=== PATIENT | female | born 1995 | race Caucasian/White ===

== ENCOUNTER 2016-06-23 02:06 | Emergency (ER) | payer SELFPAY ==
--- NOTE | ~2016-06-23 | ER ---
PATIENT'S NAME: ANETA [facility] AGE: 20 Y [address] ROOM: [place] [address] LOCATION: [facility] ADMIT DATE: 06/23/2016 ER/Outpatient Report DISCHARGE DATE: 06/23/2016 FAMILY PHYSICIAN: PHYSICIAN, NO ATTENDING PHYSICIAN: Vera Jensen Admission date and time are documented on the medical record. I saw the patient at 0215 hours. CHIEF COMPLAINT: Headache. HISTORY OF PRESENT ILLNESS: This patient is a 20-year-old female who was at work tonight accidentally hit a metal wire shelf midfacial forehead. She was dazed, but did not lose consciousness. Did not fall. Incident happened at 1930 hours this evening at work. She did get nausea, but no vomiting. No incontinence of stool or urine. No lightheadedness or dizziness. No other trauma. No eyes, ears, nose, throat, neck, or spine pain. No chest pain or shortness of breath. No abdominal pain. No history of neuro changes or endocrine problems. Does have a history of depression. She now has a global headache, unable to sleep, and presented to the emergency room for evaluation. HOME MEDICATIONS: See attached medication list. ALLERGIES: PENICILLIN. SOCIAL HISTORY: The patient smokes a pack of cigarettes per day. Does drink alcohol. Does use marijuana. SIGNIFICANT PAST MEDICAL HISTORY: Tobacco, alcohol, marijuana use, asthma, fibromyalgia, and ovarian cyst. OPERATIONS: None. REVIEW OF SYSTEMS: All systems reviewed by me are negative with the exception of those discussed in the history of present illness. PHYSICAL EXAMINATION: VITAL SIGNS: Temperature 98.4, tympanic, pulse 105, respirations 16, blood PATIENT'S NAME: ANETA [facility] AGE: 20 Y [address] ROOM: [place] [address] LOCATION: [facility] ADMIT DATE: 06/23/2016 ER/Outpatient Report DISCHARGE DATE: 06/23/2016 FAMILY PHYSICIAN: PHYSICIAN, NO ATTENDING PHYSICIAN: Vera Jensen pressure 135/73, and O2 sat on room air is 93%. HEAD: Normocephalic. I did not see any abrasion, contusions, laceration, or swellings of the scalp or face. She has a tender spot in midfacial forehead. EYES: Extraocular muscles intact. PERRL. Sclerae and conjunctivae clear, nonicteric. EARS: Clear TMs bilaterally. NOSE: Clear. THROAT: Clear. Mucous membranes moist. Teeth, jaw intact. NECK: No nuchal rigidity. No thyromegaly or cervical adenopathy. No tenderness. Range of motion full. SPINE: Nontender. No deformity. LUNGS: Clear. Good air flow. No rales, rhonchi, or wheezes. HEART: Regular. Pulses are palpable. ABDOMEN: Soft, nondistended, nontender. Good bowel tones. No organomegaly or abnormal masses palpable. PELVIS: Stable. EXTREMITIES: Moves all 4 extremities. No peripheral edema, cyanosis, or deformity. NEURO: Cranial nerves intact. No lateralizing sign. The patient is awake, oriented, and cooperative. Motor and sensory intact. NIH stroke scale was 0. SKIN: Clear. No skin eruptions or rash. IMPRESSION: Midfacial forehead contusion with a generalized headache following an accident at work, where she hit her forehead on a wire metal shelf. No loss of consciousness. The patient has a sore midfacial forehead with generalized headache. Probably has a grade 1 concussion along with contusion of the facial forehead. PLAN: The patient dismissed home. Observation. Activity as tolerated. Ice to facial forehead sore area intermittently as needed for 72 hours. Rest. Tylenol or ibuprofen 2 every 4 to 6 hours as needed for pain. Follow up with personal physician as needed. I did discuss my findings with the patient. She has no neurological changes. I did not feel that she needed a CT scan of her head at this time. VERA JENSEN MD SDS/modl PATIENT'S NAME: PUSHPA CORNELL [facility] AGE: 20 Y [address] ROOM: [place], [place] [address] LOCATION: [facility] ADMIT DATE: 06/23/2016 ER/Outpatient Report DISCHARGE DATE: 06/23/2016 FAMILY PHYSICIAN: PHYSICIAN, NO ATTENDING PHYSICIAN: Vera Jensen /[id number] d: 06/23/16 0456 t: 06/23/16 1836, OUTPATIENT REPORT
== END 2016-06-23 02:46 | disposition disaster alternative care site (69) ==
LOC: GACC 02:06
DX: S00.83XA Contusion of other part of head, initial encounter (principal); R51 Headache; F17.210 Nicotine dependence, cigarettes, uncomplicated; Z88.0 Allergy status to penicillin; W22.8XXA Striking against or struck by other objects, initial encounter; Y92.69 Other specified industrial and construction area as the place of occurrence of the external cause; Y99.0 Civilian activity done for income or pay

== ENCOUNTER 2016-07-13 10:05 | Emergency (ER) | payer SELFPAY ==
--- NOTE | ~2016-07-13 | ER ---
PATIENT'S NAME: ANETA [facility] AGE: 20 Y [address] ROOM: [place] [address] LOCATION: [facility] ADMIT DATE: 07/13/2016 ER/Outpatient Report DISCHARGE DATE: 07/13/2016 FAMILY PHYSICIAN: PHYSICIAN, NO ATTENDING PHYSICIAN: Remy Hodgson Admission date and time documented on the medical record. I saw the patient at 1015 hours. CHIEF COMPLAINT: Sore throat. HISTORY OF PRESENT ILLNESS: This patient is a 20-year-old female, who has had one to two-day history of sore throat. Problems with sleeping and breathing because of the swelling. She also has had a fever. Some chills. No headache, eyes, ears, nose, neck, or spine pain. No fall or trauma. No lightheadedness, dizziness, syncope, or near syncope. No chest pain, shortness of breath, abdominal pain, nausea, vomiting, diarrhea, or urinary complaints. No joint or muscle swelling, redness, or pain. No skin eruptions or rash. No endocrine problems, neuro changes, or psych issues. HOME MEDICATIONS: See attached medication list. ALLERGIES: PENICILLIN. SOCIAL HISTORY: The patient smokes a pack of cigarettes per day. Occasional use of alcohol and marijuana. SIGNIFICANT PAST MEDICAL HISTORY: Alcohol and marijuana use, tobacco abuse, asthma, fibromyalgia, and chronic ovarian pain secondary to cysts. OPERATIONS: None. REVIEW OF SYSTEMS: All systems reviewed by me are negative with the exception of those discussed in the history of present illness. PHYSICAL EXAMINATION: VITAL SIGNS: Temperature 99.2 tympanic, pulse 116, respirations 18, blood PATIENT'S NAME: AMHERST [facility] AGE: 20 Y [address] ROOM: [place], [place] [address] LOCATION: [facility] ADMIT DATE: 07/13/2016 ER/Outpatient Report DISCHARGE DATE: 07/13/2016 FAMILY PHYSICIAN: PHYSICIAN, NO ATTENDING PHYSICIAN: Remy Hodgson pressure 147/68, and O2 saturation on room air is 96%. HEAD: Normocephalic. EYES: Clear. EARS: Clear TMs bilaterally. NOSE: Clear. THROAT: Inflamed. Tonsils inflamed with exudate. NECK: With anterior tender adenopathy. No posterior adenopathy. LUNGS: Clear. HEART: Regular. ABDOMEN: Soft. Nontender. Good bowel tones. No CVA tenderness. EXTREMITIES: Intact. NEUROVASCULAR: Intact. SKIN: Clear. No skin eruptions or rash. LABORATORY DATA AND X-RAYS: Rapid strep screen was positive. Monospot was negative. IMPRESSION: Streptococcal tonsillitis and pharyngitis. PLAN: The patient was given Decadron 10 mg IM in the emergency room. Discharged home. Fluids and diet as tolerated. Z-Mil take as directed. Tylenol or ibuprofen as needed for fever. Follow up with personal physician in 10 days for reculture of throat. Discussion ensued with the patient concerning my findings and recommendations, she understands. MD SIMRAN KELLEY/modl /[id number] P d: 07/13/16 1905 t: 07/14/16 0608, OUTPATIENT REPORT
[2016-07-13 11:34] LABS: BASOPHIL % 0.2 %; HEMATOCRIT 36.7 % (33.0-46.0); HEMOGLOBIN 12.4 g/dL (11.0-15.0); IMMATURE GRANULOCYTE # 0.1 K/uL (0.0-0.3); IMMATURE GRANULOCYTE % 0.6 %; LYMPHOCYTE # 1.2 K/uL (0.8-4.0); LYMPHOCYTE % 7.4 %; MCH 27.6 pg (27.0-34.0); MCHC 33.8 gm/dL (32.0-36.5); MCV 81.7 fl (83.0-98.0); MONOCYTE # 1.2 K/uL (0.0-1.0); MONOCYTE % 7.4 %; MPV 10.3 fl (9.4-12.4); NEUTROPHIL # (ANC) 13.5 K/uL (1.8-7.8); NEUTROPHIL % 84.4 %; NRBC % 0 /100WBC (0-0.00); PLATELET COUNT 190 K/uL (150-450); RBC 4.49 M/uL (3.50-5.00); RDW-CV 13.2 % (11.9-14.6)
== END 2016-07-13 11:40 | disposition disaster alternative care site (69) ==
LOC: GMED 10:05
PROVIDERS: Emergency Medicine
DX: J03.00 Acute streptococcal tonsillitis, unspecified (principal); J02.0 Streptococcal pharyngitis; F17.210 Nicotine dependence, cigarettes, uncomplicated; Z88.0 Allergy status to penicillin; J45.909 Unspecified asthma, uncomplicated
CPT/HCPCS: J1100

== ENCOUNTER 2016-10-28 01:31 | Emergency (ER) | payer SELFPAY ==
--- NOTE | ~2016-10-28 | ER ---
PATIENT'S NAME: ANETA [facility] AGE: 20 Y [address] ROOM: [place] [address] LOCATION: ED ADMIT DATE: 10/28/2016 ER/Outpatient Report DISCHARGE DATE: 10/28/2016 FAMILY PHYSICIAN: PHYSICIAN, NO ATTENDING PHYSICIAN: Bernardo David Time of Admit: 0131 hours. Time Seen: 0140 hours. HISTORY OF PRESENT ILLNESS: This is a 20-year-old female. She is previously healthy. She is in with complaint of headache; nasal congestion; sinus pain for the past week; cough for the past 2 days, it has gotten steadily worse. PAST MEDICAL HISTORY: Significant for bipolar disorder. CURRENT MEDICATIONS: See list. REVIEW OF SYSTEMS: Otherwise negative. SOCIAL HISTORY: She is a 6-hevl-akv-day smoker. PHYSICAL EXAMINATION: GENERAL: Alert, obese female, in no acute distress. VITAL SIGNS: Stable. SKIN: Warm and dry. Color is normal. She had frequent fits of cough. HEAD, EARS, EYES, NOSE, AND THROAT: Revealed moderate maxillary sinus tenderness. Tympanic membranes are normal. Throat is clear. NECK: Supple. HEART: Regular rate and rhythm without murmur. LUNGS: Had coarse rhonchi audible bilaterally. ABDOMEN: Soft and nontender. EXTREMITIES: Normal. NEUROLOGIC: Normal. ASSESSMENT: Sinusitis/bronchitis. PLAN: Augmentin 875 twice a day and follow up with her regular doctor as needed. PATIENT'S NAME: ANETA [facility] AGE: 20 Y [address] ROOM: [place] [address] LOCATION: ED ADMIT DATE: 10/28/2016 ER/Outpatient Report DISCHARGE DATE: 10/28/2016 FAMILY PHYSICIAN: PHYSICIAN, NO ATTENDING PHYSICIAN: Bernardo David BERNARDO DAVID MD JDB/modl /[id number] d: 10/28/1655 t: 10/29/16 0552, OUTPATIENT REPORT
== END 2016-10-28 01:57 | disposition disaster alternative care site (69) ==
LOC: GMED 01:31
DX: J32.9 Chronic sinusitis, unspecified (principal); J40 Bronchitis, not specified as acute or chronic; F31.9 Bipolar disorder, unspecified; F17.210 Nicotine dependence, cigarettes, uncomplicated; Z79.899 Other long term (current) drug therapy; Z88.0 Allergy status to penicillin